=== PATIENT | female | born 1995 | race Caucasian/White ===

== ENCOUNTER 2016-05-14 15:03 | Emergency (ER) | payer MEDICAID ==
[2016-05-14 15:26] VITALS: BP 123/90; PULSE 91; RESP 16; TEMP 98.5; O2SAT 94
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
[2016-05-14 15:43] LABS: LEUKOCYTE ESTERASE,URINE 2+ (NEGATIVE); NITRITE,URINE NEGATIVE (NEGATIVE); PH,URINE 5.5 (5.0-7.5)
[2016-05-14 15:44] LABS: COLOR YELLOW
[2016-05-14 15:51] LABS: BACTERIA 2+ /hpf (NONE SEEN); MUCUS 1+ /lpf (NONE-1+); RBC,URINE 15-25 /hpf (0-3); WBC,URINE 25-50 /hpf (0-3)
== END 2016-05-14 15:53 | disposition home or self-care (01) ==
LOC: CED 15:03
DX: N12 Tubulo-interstitial nephritis, not specified as acute or chronic (principal); Z87.891 Personal history of nicotine dependence
CPT/HCPCS: 81003-PO; 81015-PO; 99214-PO; G0463-PO